=== PATIENT | female | born 1990 | race Caucasian/White ===

== ENCOUNTER 2018-03-09 13:53 | Inpatient (IN) | payer BC ==
[~2018-03-09] VITALS: Ht 162.6 cm; Wt 100.7 kg
--- NOTE | ~2018-03-09 | OP ---
PATIENT NAME: YASMEEN SALMON MEDICAL RECORD: [id number] :90 LOCATION:[id number] ADMISSION DATE:03/09/18 SURGEON: WISAM OLGUIN MD DATE OF OPERATION: 03/10/2018 PREOPERATIVE DIAGNOSES: 1. at 39 weeks. 2. Severe preeclampsia. 3. Failed induction. DIAGNOSES: 1. at 39 weeks. 2. Severe preeclampsia. 3. Failed induction. PROCEDURE: Primary low transverse section. SURGEON: Wisam Olguin MD ANESTHESIOLOGIST: Dr. Reardon ANESTHETICS: Continuous lumbar epidural. FINDINGS: Viable male infant, vertex presentation, Apgars 9 and 9, weight 3040 grams. Unremarkable uterus, tubes, and ovaries bilaterally. Noted is an increased volume of peritoneal fluid. SPECIMENS REMOVED: Placenta. SPECIMEN DISPOSITION: Pathology. ESTIMATED BLOOD LOSS: 800 cc. FLUIDS: 2 liters of lactated Ringer's. URINE OUTPUT: 500 cc of concentrated urine. COMPLICATIONS: None. DRAIN: Logan to gravity. INDICATIONS: The patient is a 27-year-old G1, para 0 with mild range pressures in clinic. The patient was sent to labor and delivery and in short period of time developed severe range pressures. She had 2+ proteinuria and was given misoprostol to begin induction. After greater than 12 hours of adequate contractions, the patient failed to have any change in cervical dilation or station. The patient was consented for primary low transverse section. DESCRIPTION OF PROCEDURE: After informed consent was assured, the patient was taken to the operating room where anesthetic was obtained without difficulty. The patient was now prepped and draped in the usual sterile fashion. After assessment of the anesthetic, a low transverse incision was made on the abdomen, carried down to the underlying layer of the fascia, which was opened in the midline and the opening extended laterally. Rectus bellies were dissected free OPERATIVE REPORT [id number] YASMEEN SALMON superiorly and inferiorly and then in the midline. The peritoneum was entered and the opening extended with Metzenbaum scissors. DeLee all-purpose retractor was inserted. Low transverse hysterotomy was performed after development of the bladder flap. Infant was delivered onto the abdomen atraumatically. The cord was doubly clamped and cut, and the infant was passed to the attendance. The uterus was then exteriorized, cleared of all clot and debris and then returned to the abdomen. The hysterotomy was closed in a running locked fashion. Interrupted vertical mattress stitches were used to reapproximate the peritoneum and rectus belly in the midline. The fascia was closed with a looped PDS and subcutaneous tissues reapproximated with a plain gut stitch after cauterizing bleeding vessels. Sponge, lap, and needle counts correct times 2. The skin was reapproximated with keke. The patient will be continued on magnesium sulfate at 2 grams an hour until an adequate diuresis. Blood pressures will be managed expectantly. TRANSINT:[id number] Voice Confirmation ID: [id number] DOCUMENT ID: [id number] WISAM OLGUIN MD at 1600 CC: [id number] DICTATION DATE: 03/10/18716 SCOOP DRIVER: 03/10/18727 DIS IN 03/12/18 [facility] [address] [place] [address]
[2018-03-09] MEDS ORDERED: SYNTHROID50 MCG PO (14:46)
[2018-03-09] MEDS ORDERED: PRENAVITE1 TAB PO (14:46)
[2018-03-09 14:53] VITALS: BP 177/91; BMI 38.2
[2018-03-09 15:47] LABS: HEMATOCRIT 34.3 % (36.0-48.0); HEMOGLOBIN 11.4 g/dL (12-16); MCH 28.3 pg (26.0-34.0); MCHC 33.2 g/dL (31.0-37.0); MCV 85.1 fL (80.0-100.0); MEAN PLATELET VOLUME 11.7 fL (7.4-10.4); PLATELET COUNT 193 10x3/uL (130-400); RBC 4.03 10x6/uL (4.00-5.40); RDW 13.9 % (11.5-14.5); WBC 11.4 10x3/uL (4.8-10.8)
[2018-03-09 16:02] LABS: BASOPHILS 0.2 % (0-2); EOSINOPHILS 0.2 % (0-7); IMMATURE GRANULOCYTES 0.2 % (0-5); LYMPHOCYTES 13.7 % (15-50); NEUTROPHILS 78.7 % (40-80)
[2018-03-09 16:19] LABS: ALKALINE PHOSPHATASE 101 U/L (46-116); ALT (SGPT) 13 U/L (10-68); CALC OSMOLALITY 275 mosm/kg (275-300); CARBON DIOXIDE 23.8 mmol/L (21.0-32.0); CHLORIDE - SERUM 104 mmol/L (98-107); CREATININE - SERUM 0.7 mg/dL (0.6-1.3); GLUCOSE 89 mg/dL (74-106); POTASSIUM - SERUM 3.9 mmol/L (3.5-5.1); PROTEIN - SERUM 6.5 g/dL (6.4-8.2); SODIUM 139 mmol/L (136-145); UREA NITROGEN 11 mg/dL (7-18); eGFR NON AFRICAN AMERICAN > 90 mL/min (90-120)
[2018-03-09 16:22] LABS: BILIRUBIN - DIRECT 0.01 mg/dL (0.00-0.30); BILIRUBIN - INDIRECT 0.09 mg/dL (0.00-1.00); URIC ACID 4.5 mg/dL (2.6-7.2)
[2018-03-09 19:49] LABS: APPEARANCE HAZY (CLEAR); BILIRUBIN NEGATIVE (NEGATIVE); COLOR STRAW (YELLOW); GLUCOSE NEGATIVE (NEGATIVE); KETONE NEGATIVE (NEGATIVE); NITRITE NEGATIVE (NEGATIVE); PROTEIN 3+ mg/dL (NEGATIVE); SPECIFIC GRAVITY 1.005 (1.005-1.020); UROBILINOGEN NORMAL (NORMAL)
[2018-03-09 19:54] LABS: AMORPHOUS SEDIMENT <1+ /lpf (NONE SEEN); BACTERIA MANY /hpf (NONE SEEN); EPITHELIAL CELLS 0-5 /hpf (0-5); HYALINE CAST RARE /lpf (NONE SEEN); RED CELLS - URINE OCC /hpf (0-5); WHITE CELLS - URINE 0-5 /hpf (0-5)
[2018-03-10 06:15] LABS: RAPID PLASMA REAGIN Non Reactive (Non Reactive)
[2018-03-10 08:14] VITALS: BP 157/92
[2018-03-10 11:03] VITALS: Ht 162.6 cm; Wt 100.7 kg
[2018-03-10 19:30] VITALS: BP 145/90
[2018-03-10 23:37] VITALS: BP 138/86
[2018-03-11 04:01] VITALS: BP 168/81
[2018-03-11 07:45] VITALS: BP 151/84
[2018-03-11 08:31] LABS: HEMATOCRIT 32.4 % (36.0-48.0); HEMOGLOBIN 10.6 g/dL (12-16); MCH 28.1 pg (26.0-34.0); MCHC 32.7 g/dL (31.0-37.0); MCV 85.9 fL (80.0-100.0); MEAN PLATELET VOLUME 11.1 fL (7.4-10.4); RBC 3.77 10x6/uL (4.00-5.40); RDW 14.6 % (11.5-14.5); WBC 14.3 10x3/uL (4.8-10.8)
[2018-03-11 16:00] VITALS: BP 140/75
[2018-03-11 19:28] VITALS: BP 159/89
[2018-03-11 23:40] VITALS: BP 145/81
[2018-03-12 04:10] VITALS: BP 144/85
[2018-03-12 07:40] VITALS: BP 148/88
[2018-03-12 09:01] VITALS: BP 142/80
[2018-03-12] MEDS ORDERED: NORMODYNE / TR100 MG PO (09:56)
[2018-03-12] MEDS ORDERED: IBUPROFEN800 MG PO (09:57)
[2018-03-12] MEDS ORDERED: PERCOCET 7.5/321 TAB PO (09:58)
== END 2018-03-12 13:25 | disposition home or self-care (01) | DRG 788 ==
LOC: D.LD 13:53
PROVIDERS: Obstetrics & Gynecology
PROC: 10D00Z1 Extraction of Products of Conception, Low, Open Approach (ICD-10-PCS; principal; 2018-03-10 06:00)
DX: O14.14 Severe pre-eclampsia complicating childbirth (principal); Z3A.39 39 weeks gestation of pregnancy; O99.284 Endocrine, nutritional and metabolic diseases complicating childbirth; E03.9 Hypothyroidism, unspecified; K21.9 Gastro-esophageal reflux disease without esophagitis; O99.214 Obesity complicating childbirth; O61.9 Failed induction of labor, unspecified

== ENCOUNTER → 2020-07-15 11:48 | Outpatient (CLI) | payer OTHER ==
[2018-03-10 11:03] VITALS: BMI 38.1
[~2020-07-15 11:48] MED LIST: IBUPROFEN800 MG PO; NORMODYNE / TR100 MG PO; PERCOCET 7.5/321 TAB PO; PRENAVITE1 TAB PO; SYNTHROID50 MCG PO
== END | disposition home or self-care (01) ==
LOC: D.US 11:30
PROVIDERS: ATTEND Obstetrics & Gynecology
DX: N63.20 Unspecified lump in the left breast, unspecified quadrant (principal)